=== PATIENT | male | born 1950 | race Caucasian/White ===

== ENCOUNTER → 2016-07-10 | Outpatient (CLI) | payer OTHER, MEDICARE | LOC: RAD 10:02 | DX: R05 Cough (principal) ==

== ENCOUNTER → 2016-11-09 | Outpatient (CLI) | payer OTHER, MEDICARE ==
[2013-10-20 10:19] VITALS: BP 114/82
== END ==
LOC: LAB 11:26
DX: E11.9 Type 2 diabetes mellitus without complications (principal); Z12.5 Encounter for screening for malignant neoplasm of prostate; E78.2 Mixed hyperlipidemia; N52.03 Combined arterial insufficiency and corporo-venous occlusive erectile dysfunction; G25.81 Restless legs syndrome; R20.2 Paresthesia of skin

== ENCOUNTER → 2017-11-28 | Outpatient (CLI) | payer OTHER, MEDICARE ==
[2013-10-20 10:19] VITALS: BP 114/82
== END ==
LOC: LAB 11:13
DX: Z00.00 Encounter for general adult medical examination without abnormal findings (principal); Z12.11 Encounter for screening for malignant neoplasm of colon

== ENCOUNTER → 2018-06-26 | Outpatient (CLI) | payer OTHER, MEDICARE ==
[2013-10-20 10:19] VITALS: BP 114/82
== END ==
LOC: LAB 11:28
DX: L03.032 Cellulitis of left toe (principal); E11.9 Type 2 diabetes mellitus without complications

== ENCOUNTER → 2019-01-02 | Outpatient (CLI) | payer OTHER, MEDICARE ==
[2013-10-20 10:19] VITALS: BP 114/82
[2019-01-02 09:37] LABS: EOS # 0.2 (0.04-0.40); EOS % 2.9 % (0.0-4.0); HEMATOCRIT 33.9 % (42.0-52.0); HEMOGLOBIN 10.8 g/dL (13.5-18.0); LYMPH# 2.3 (1.50-4.00); MEAN CELL VOLUME 97 fl (78-100); MEAN CORPUSCULAR HEMOGLOBIN 31 pg (27-31); MEAN CORPUSCULAR HGB CONC 32 g/dL (33-37); MEAN PLATELET VOLUME 9.9 fl (7.4-10.4); MONO # 0.8 (0.20-0.80); NEU # 5.1 (1.40-6.50); PLATELET COUNT 349 K/mm3 (130-400); RED BLOOD COUNT 3.49 M/mm3 (4.20-5.60); RED CELL DISTRIBUTION WIDTH 14.7 % (11.5-14.5); WHITE BLOOD COUNT 8.4 K/mm3 (4.8-10.8)
[2019-01-02 09:50] LABS: ALBUMIN 4.3 g/dL (3.4-4.8); POTASSIUM 4.3 mmol/L (3.5-5.1)
[2019-01-02 09:51] LABS: CALCIUM 9.7 mg/dL (8.3-10.5)
[2019-01-02 09:53] LABS: TOTAL PROTEIN 6.9 g/dL (6.2-8.1)
[2019-01-02 09:55] LABS: TOTAL BILIRUBIN 0.4 mg/dL (0.2-1.2)
== END ==
LOC: LAB 09:21
PROVIDERS: Internal Medicine
DX: I25.10 Atherosclerotic heart disease of native coronary artery without angina pectoris (principal); E11.9 Type 2 diabetes mellitus without complications; K22.6 Gastro-esophageal laceration-hemorrhage syndrome

== ENCOUNTER → 2019-06-26 | Outpatient (CLI) | payer MEDICARE ==
[2013-10-20 10:19] VITALS: BP 114/82
[2019-06-26 10:31] LABS: ALBUMIN 4.1 g/dL (3.4-4.8)
[2019-06-26 10:33] LABS: TOTAL PROTEIN 6.5 g/dL (6.2-8.1)
[2019-06-26 10:35] LABS: TOTAL BILIRUBIN 0.3 mg/dL (0.2-1.2)
== END ==
LOC: LAB 09:37
PROVIDERS: Internal Medicine
DX: E78.2 Mixed hyperlipidemia (principal); E11.9 Type 2 diabetes mellitus without complications

== ENCOUNTER → 2019-09-22 | Outpatient (CLI) | payer MEDICARE ==
[2013-10-20 10:19] VITALS: BP 114/82
[2019-09-22 14:40] LABS: ALBUMIN 4.4 g/dL (3.4-4.8); POTASSIUM 5.4 mmol/L (3.5-5.1)
[2019-09-22 14:41] LABS: CALCIUM 10.3 mg/dL (8.3-10.5)
[2019-09-22 14:42] LABS: TOTAL PROTEIN 7.1 g/dL (6.2-8.1)
[2019-09-22 14:44] LABS: TOTAL BILIRUBIN 0.4 mg/dL (0.2-1.2)
== END ==
LOC: LAB 14:11
PROVIDERS: Internal Medicine
DX: E11.9 Type 2 diabetes mellitus without complications (principal); E78.2 Mixed hyperlipidemia

== ENCOUNTER → 2020-02-17 | Outpatient (CLI) | payer MEDICARE ==
[2013-10-20 10:19] VITALS: BP 114/82
[2020-02-17 10:21] LABS: POTASSIUM 4.6 mmol/L (3.5-5.1)
== END ==
LOC: LAB 09:59
PROVIDERS: Internal Medicine
DX: I25.10 Atherosclerotic heart disease of native coronary artery without angina pectoris (principal)

== ENCOUNTER → 2020-09-01 | Outpatient (CLI) | payer MEDICARE ==
[2013-10-20 10:19] VITALS: BP 114/82
[~2020-09-01] MED LIST: CLOPIDOGREL75 M2 PO; DESVENLAFAXINE50 M3 PO; LISINOPRIL10 MG PO; LOPRESSOR 225 MG/TAB PO; METFORMIN ER500 MG PO; PERCOCET 325 MG1 TAB PO; ROPINIROLE HYD0.5 MG; SIMVASTATIN40 M1 PO
[2020-09-01 11:45] LABS: POTASSIUM 4.6 mmol/L (3.5-5.1)
[2020-09-01 11:53] LABS: MAGNESIUM 1.69 mg/dL (1.60-2.60)
== END ==
LOC: LAB 10:47
PROVIDERS: Internal Medicine
DX: R25.2 Cramp and spasm (principal)

== ENCOUNTER 2020-09-12 10:44 | Emergency (ER) | payer MEDICARE ==
[2020-09-12 11:31] LABS: BASO # 0.02 (0.02-0.10); HEMATOCRIT 40.9 % (42.0-52.0); HEMOGLOBIN 13.8 g/dL (13.5-18.0); LYMPH# 1.67 (1.50-4.00); MEAN CELL VOLUME 93 fl (78-100); MEAN CORPUSCULAR HEMOGLOBIN 31 pg (27-31); MEAN CORPUSCULAR HGB CONC 34 g/dL (33-37); NEU # 6.63 (1.40-6.50); PLATELET COUNT 224 K/mm3 (130-400); RED BLOOD COUNT 4.41 M/mm3 (4.20-5.60); RED CELL DISTRIBUTION WIDTH 12.7 % (11.5-14.5); WHITE BLOOD COUNT 8.9 K/mm3 (4.8-10.8)
[2020-09-12 11:42] LABS: POTASSIUM 4.7 mmol/L (3.5-5.1); SODIUM 137 mmol/L (136-145)
[2020-09-12 11:43] LABS: CALCIUM 9.6 mg/dL (8.3-10.5)
[2020-09-12 11:43] LABS: URINE APPEARANCE CLEAR; URINE BILIRUBIN NEGATIVE (NEGATIVE); URINE COLOR YELLOW; URINE KETONE NEGATIVE (NEGATIVE); URINE LEUKOCYTE ESTERASE NEGATIVE (NEGATIVE); URINE NITRATE NEGATIVE (NEGATIVE); URINE PROTEIN(semi-quant) 1+ mg/dL (NEGATIVE); URINE UROBILINOGEN NORMAL (NORMAL)
[2020-09-12 11:44] LABS: GLUCOSE 236 mg/dL (75-110); TOTAL PROTEIN 6.4 g/dL (6.2-8.1)
[2020-09-12 11:44] LABS: URINE BLOOD TRACE (NEGATIVE); URINE MUCUS PRESENT (NOT PRESENT)
[2020-09-12 11:45] LABS: CARBON DIOXIDE 18 mmol/L (23-31)
[2020-09-12 11:46] LABS: TOTAL BILIRUBIN 0.4 mg/dL (0.2-1.2)
[2020-09-12 11:49] LABS: AST-SGOT 20 U/L (5-34)
[2020-09-12] MEDS ORDERED: PERCOCET 325 MG1 TAB PO (11:50)
[2020-09-12] MEDS ORDERED: LOPRESSOR 225 MG/TAB PO (11:50)
[2020-09-12] MEDS ORDERED: DESVENLAFAXINE50 M3 PO (11:50)
[2020-09-12] MEDS ORDERED: CLOPIDOGREL75 M2 PO (11:50)
[2020-09-12] MEDS ORDERED: SIMVASTATIN40 M1 PO (11:50)
[2020-09-12] MEDS ORDERED: METFORMIN ER500 MG PO (11:50)
[2020-09-12] MEDS ORDERED: LISINOPRIL10 MG PO (11:50)
[2020-09-12 11:51] LABS: ALT/SGPT 20 U/L (0-55)
[2020-09-12] MEDS ORDERED: ROPINIROLE HYD0.5 MG (11:51)
[2020-09-12 12:07] LABS: TROPONIN-I < 0.03 ng/mL (<0.030)
[2020-09-12 13:06] VITALS: BP 120/71
== END 2020-09-12 12:51 | disposition home or self-care (01) ==
LOC: ED 10:44
PROVIDERS: Nurse Practitioner Primary Care
DX: R53.81 Other malaise (principal); T43.216A Underdosing of selective serotonin and norepinephrine reuptake inhibitors, initial encounter; E11.65 Type 2 diabetes mellitus with hyperglycemia; F32.9 Major depressive disorder, single episode, unspecified; I25.10 Atherosclerotic heart disease of native coronary artery without angina pectoris; I10 Essential (primary) hypertension; Z79.899 Other long term (current) drug therapy; Z79.02 Long term (current) use of antithrombotics/antiplatelets; Z79.84 Long term (current) use of oral hypoglycemic drugs

== ENCOUNTER → 2020-12-30 | Outpatient (CLI) | payer MEDICARE ==
[2020-12-30 09:44] LABS: BASO # 0.04 (0.02-0.10); EOS # 0.68 (0.04-0.40); EOS % 9.2 % (0.0-4.0); HEMATOCRIT 46.7 % (42.0-52.0); HEMOGLOBIN 15.2 g/dL (13.5-18.0); LYMPH# 1.91 (1.50-4.00); MEAN CELL VOLUME 96 fl (78-100); MEAN CORPUSCULAR HEMOGLOBIN 31 pg (27-31); MEAN CORPUSCULAR HGB CONC 33 g/dL (33-37); MEAN PLATELET VOLUME 10.1 fl (7.4-10.4); MONO # 0.62 (0.20-0.80); NEU # 4.12 (1.40-6.50); PLATELET COUNT 184 K/mm3 (130-400); RED BLOOD COUNT 4.87 M/mm3 (4.20-5.60); RED CELL DISTRIBUTION WIDTH 12.5 % (11.5-14.5); WHITE BLOOD COUNT 7.4 K/mm3 (4.8-10.8)
[2020-12-30 09:46] LABS: POTASSIUM 4.9 mmol/L (3.5-5.1)
[2020-12-30 09:47] LABS: ALBUMIN 4.6 g/dL (3.4-4.8)
[2020-12-30 09:48] LABS: CALCIUM 10.7 mg/dL (8.3-10.5)
[2020-12-30 09:49] LABS: TOTAL PROTEIN 7.5 g/dL (6.2-8.1)
[2020-12-30 09:51] LABS: TOTAL BILIRUBIN 0.5 mg/dL (0.2-1.2)
[2020-12-30 09:56] LABS: MAGNESIUM 1.83 mg/dL (1.60-2.60)
[2020-12-30 10:13] LABS: URINE APPEARANCE CLEAR; URINE BILIRUBIN NEGATIVE (NEGATIVE); URINE BLOOD 50 ery/uL (NEGATIVE); URINE COLOR YELLOW; URINE GLUCOSE NEGATIVE (NEGATIVE); URINE KETONE NEGATIVE (NEGATIVE); URINE LEUKOCYTE ESTERASE NEGATIVE (NEGATIVE); URINE MUCUS PRESENT (NOT PRESENT); URINE NITRATE NEGATIVE (NEGATIVE); URINE PROTEIN(semi-quant) 1+ mg/dL (NEGATIVE); URINE UROBILINOGEN NORMAL (NORMAL); URINE WBC 0-1 /hpf (0-3)
[2020-12-30 10:52] LABS: ERYTHROCYTE SEDIMENTATION RATE 5 mm/hr (0-20)
== END ==
LOC: LAB 12-29 07:56
PROVIDERS: Internal Medicine
DX: E11.9 Type 2 diabetes mellitus without complications (principal); E78.2 Mixed hyperlipidemia; K90.9 Intestinal malabsorption, unspecified

== ENCOUNTER → 2021-12-29 | Outpatient (CLI) | payer MEDICARE, OTHER ==
[2021-12-29 09:51] LABS: BASO # 0.04 K/mm3 (0.02-0.10); EOS # 0.02 K/mm3 (0.04-0.40); EOS % 0.3 % (0.0-4.0); HEMATOCRIT 42.9 % (42.0-52.0); HEMOGLOBIN 14.3 g/dL (13.5-18.0); LYMPH# 1.35 K/mm3 (1.50-4.00); MEAN CELL VOLUME 94 fl (78-100); MEAN CORPUSCULAR HEMOGLOBIN 31 pg (27-31); MEAN CORPUSCULAR HGB CONC 33 g/dL (33-37); MEAN PLATELET VOLUME 10.3 fl (7.4-10.4); MONO # 0.49 K/mm3 (0.20-0.80); NEU # 4.68 K/mm3 (1.40-6.50); PLATELET COUNT 165 K/mm3 (130-400); RED BLOOD COUNT 4.56 M/mm3 (4.20-5.60); RED CELL DISTRIBUTION WIDTH 12.9 % (11.5-14.5); WHITE BLOOD COUNT 6.6 K/mm3 (4.8-10.8)
[2021-12-29 16:01] LABS: ALBUMIN 4.2 g/dL (3.4-4.8); POTASSIUM 4.7 mmol/L (3.5-5.1)
[2021-12-29 16:03] LABS: CALCIUM 9.6 mg/dL (8.3-10.5)
[2021-12-29 16:04] LABS: TOTAL PROTEIN 6.8 g/dL (6.2-8.1)
[2021-12-29 16:06] LABS: TOTAL BILIRUBIN 0.4 mg/dL (0.2-1.2)
== END ==
LOC: LAB 09:28
PROVIDERS: Internal Medicine
DX: E11.9 Type 2 diabetes mellitus without complications (principal); M54.12 Radiculopathy, cervical region; I25.10 Atherosclerotic heart disease of native coronary artery without angina pectoris; M51.9 Unspecified thoracic, thoracolumbar and lumbosacral intervertebral disc disorder; S29.019A Strain of muscle and tendon of unspecified wall of thorax, initial encounter; G62.9 Polyneuropathy, unspecified

== ENCOUNTER → 2024-01-23 | Outpatient (CLI) | payer MEDICARE ==
[2024-01-23 09:04] LABS: CALCIUM 9.7 mg/dL (8.3-10.5)
== END ==
LOC: LAB 08:38
PROVIDERS: Internal Medicine
DX: E11.9 Type 2 diabetes mellitus without complications (principal)

== ENCOUNTER → 2024-05-19 | Outpatient (CLI) | payer MEDICARE ==
[~2024-05-19] MED LIST changes: +Iohexol 300 - 100 ML VIAL IV ONE
[2024-05-19 09:29] LABS: BASO # 0.06 K/mm3 (0.02-0.10); EOS # 0.09 K/mm3 (0.04-0.40); EOS % 1.1 % (0.0-4.0); HEMATOCRIT 43.6 % (42.0-52.0); HEMOGLOBIN 14.5 g/dL (13.5-18.0); LYMPH# 1.48 K/mm3 (1.50-4.00); MEAN CELL VOLUME 93 fl (78-100); MEAN CORPUSCULAR HEMOGLOBIN 31 pg (27-31); MEAN CORPUSCULAR HGB CONC 33 g/dL (33-37); MEAN PLATELET VOLUME 10.3 fl (7.4-10.4); MONO # 0.48 K/mm3 (0.20-0.80); NEU # 5.81 K/mm3 (1.40-6.50); PLATELET COUNT 154 K/mm3 (130-400); RED BLOOD COUNT 4.67 M/mm3 (4.20-5.60); RED CELL DISTRIBUTION WIDTH 13.3 % (11.5-14.5); WHITE BLOOD COUNT 7.9 K/mm3 (4.8-10.8)
[2024-05-19 09:37] LABS: ALBUMIN 4.5 g/dL (3.4-4.8)
[2024-05-19 09:38] LABS: CALCIUM 10.1 mg/dL (8.3-10.5)
[2024-05-19 09:40] LABS: TOTAL PROTEIN 6.9 g/dL (6.2-8.1)
[2024-05-19 09:41] LABS: TOTAL BILIRUBIN 0.3 mg/dL (0.2-1.2)
[2024-05-19 09:46] LABS: MAGNESIUM 1.76 mg/dL (1.60-2.60)
[2024-05-19 09:48] LABS: PH-URINE 5.5 (5.0 - 8.0); URINE APPEARANCE CLEAR (CLEAR); URINE BILIRUBIN NEGATIVE (NEGATIVE); URINE BLOOD TRACE (NEGATIVE); URINE COLOR YELLOW (YELLOW); URINE GLUCOSE NEGATIVE (NEGATIVE); URINE KETONE NEGATIVE (NEGATIVE); URINE LEUKOCYTE ESTERASE NEGATIVE (NEGATIVE); URINE MUCUS PRESENT (NOT PRESENT); URINE NITRATE NEGATIVE (NEGATIVE); URINE PROTEIN(semi-quant) TRACE (NEGATIVE); URINE WBC 0-1 /hpf (0-3)
[2024-05-19 23:44] LABS: TESTOSTERONE 344 ng/dL (221-716)
== END ==
LOC: LAB 08:51 → RAD 08:51
PROVIDERS: Internal Medicine
DX: Z12.5 Encounter for screening for malignant neoplasm of prostate (principal); Z12.11 Encounter for screening for malignant neoplasm of colon; I25.10 Atherosclerotic heart disease of native coronary artery without angina pectoris; K90.9 Intestinal malabsorption, unspecified; E11.42 Type 2 diabetes mellitus with diabetic polyneuropathy; E78.2 Mixed hyperlipidemia; F52.21 Male erectile disorder; R10.84 Generalized abdominal pain
CPT/HCPCS: Q9967

== ENCOUNTER → 2024-05-21 | Outpatient (CLI) | payer MEDICARE ==
[~2024-05-21] MED LIST changes: -Iohexol 300 - 100 ML VIAL IV ONE
== END ==
LOC: RAD 13:45
DX: R91.1 Solitary pulmonary nodule (principal)

== ENCOUNTER → 2024-05-26 | Outpatient (CLI) | payer MEDICARE | LOC: LAB 09:14 | DX: Z12.5 Encounter for screening for malignant neoplasm of prostate (principal); Z12.11 Encounter for screening for malignant neoplasm of colon; I25.10 Atherosclerotic heart disease of native coronary artery without angina pectoris; K90.9 Intestinal malabsorption, unspecified; E78.2 Mixed hyperlipidemia; E11.42 Type 2 diabetes mellitus with diabetic polyneuropathy; F52.21 Male erectile disorder ==

== ENCOUNTER → 2024-06-22 | Day surgery (SDC) | payer MEDICARE ==
[~2024-06-22] MED LIST changes: +Lidocaine PF 2% (20 MG/ML) 5 ML VIAL ONE
== END | disposition home or self-care (01) ==
LOC: MSO 09:14
DX: R19.5 Other fecal abnormalities (principal); R93.5 Abnormal findings on diagnostic imaging of other abdominal regions, including retroperitoneum; D12.3 Benign neoplasm of transverse colon; D12.5 Benign neoplasm of sigmoid colon; Z79.01 Long term (current) use of anticoagulants; Z87.891 Personal history of nicotine dependence
CPT/HCPCS: 00811; J2704; J7120